=== PATIENT | male | born 1965 | race Caucasian/White ===

== ENCOUNTER 2020-04-05 10:10 | Emergency (ER) | payer OTHER ==
[~2020-04-05] VITALS: Ht 182.9 cm; Wt 111.9 kg
[2020-04-05 10:19] VITALS: BP 144/86
[2020-04-05] MEDS ORDERED: ONDANSETRON PF 4 MG/2 ML VIAL. ONE (10:38)
--- NOTE | 2020-04-05 10:42 | PHYS DOC ---
Past History Past Medical History: Other Additional Past Medical Histor: PE Past Surgical History: Hip Replacement Smoking: Non-smoker Alcohol Use: None Drug Use: None Adult General Chief Complaint Chief Complaint: FATIGUE HPI HPI Patient is a 54-year-old male presenting for nausea and vomit. Patient states he has been grossly fatigued, had generalized muscle aches and ongoing nausea with infrequent episodes of nonbilious nonbloody emesis and diarrhea for past 2 weeks. He saw his primary care physician roughly 2 weeks ago and tested rapid Covid screen negative at that time. Supportive care was advised. Symptoms did not resolve so he visited his primary care physician 6 days ago for repeat evaluation and again was checked for rapid COVID-19 test which was also negative at that time, patient was subsequently prescribed Z-Deep and completed this in its entirety yesterday. States he woke up today with ongoing nausea and had x1 episode of nonbloody nonbilious emesis prompting him to come to our ER for evaluation. Patient reports being healthy, fully up-to-date on all vaccinations, and has remote history of pulmonary embolism for which he takes Xarelto daily. No fevers, falls, no syncope or dizziness, no recent travel concerning ingestions or trauma, no chest pain, shortness of breath, productive cough, abdominal pain, urinary symptoms, changes in motor or sensory function. Patient's associated symptoms throughout entirety of illness onset has been vague pain to the superiormost portion of his head without radiation, rhinorrhea and postnasal drip, nausea without abdominal pain, and infrequent episodes of nonbloody nonbilious emesis and looser stools than usual as noted above. Review of Systems Review of Systems Fourteen body systems of review of systems have been reviewed. See HPI for pertinent positives and negative responses, other pimentel all other systems are negative, non-pertinent or non-contributory Allergies Allergies Allergies Coded Allergies Type Severity Reaction Last Updated Verified No Known Drug Allergies 04/05/20 No Physical Exam Physical Exam Constitutional: Well developed, well nourished, no acute distress, non-toxic appearance. Appears uncomfortable HENT: Normocephalic, atraumatic, bilateral external ears normal, oropharynx moist, postnasal drip present, no oral exudates, nose normal. No cervical lymphadenopathy Eyes: PERRLA, EOMI, conjunctiva normal, no discharge. Neck: Normal range of motion, no tenderness, supple, no stridor. Cardiovascular: Heart rate regular, sinus rhythm, no murmurs rubs or gallops Lungs & Thorax: Bilateral breath sounds clear to auscultation, no respiratory distress, no accessory muscle usage Abdomen: Bowel sounds normal, soft, no tenderness, no masses, no pulsatile masses. Nonsurgical abdomen, no peritoneal signs Skin: Warm, dry, no erythema, no rash. Back: No tenderness, no CVA tenderness. Extremities: No tenderness, no cyanosis, no clubbing, ROM intact, no edema. Neurologic: Alert and oriented X 3, grossly normal motor & sensory function, no focal deficits noted. Psychologic: Blunted affect, judgement normal, mood normal. Current Patient Data Vital Signs Vital Signs Date Time Temp Pulse Resp B/P (MAP) Pulse Ox O2 Delivery O2 Flow Rate FiO2 04/05/20 10:19 98.6 78 16 144/86 (105) 98 Room Air Lab Results Laboratory Tests Test 04/05/20 10:36 White Blood Count 3.8 x10^3/uL Red Blood Count 3.97 x10^6/uL Hemoglobin 12.2 g/dL Hematocrit 35.7 % Mean Corpuscular Volume 90 fL Mean Corpuscular Hemoglobin 31 pg Mean Corpuscular Hemoglobin Concent 34 g/dL Red Cell Distribution Width 12.3 % Platelet Count 298 x10^3/uL Neutrophils (%) (Auto) 51 % Lymphocytes (%) (Auto) 38 % Monocytes (%) (Auto) 8 % Eosinophils (%) (Auto) 1 % Basophils (%) (Auto) 2 % Neutrophils # (Auto) 1.9 x10^3uL Lymphocytes # (Auto) 1.4 x10^3/uL Monocytes # (Auto) 0.3 x10^3/uL Eosinophils # (Auto) 0.0 x10^3/uL Basophils # (Auto) 0.1 x10^3/uL Sodium Level 131 mmol/L Potassium Level 4.3 mmol/L Chloride Level 97 mmol/L Carbon Dioxide Level 23 mmol/L Anion Gap 11 Blood Urea Nitrogen 16 mg/dL Creatinine 1.0 mg/dL Estimated GFR (Cockcroft-Gault) 78.5 BUN/Creatinine Ratio 16 Glucose Level 121 mg/dL Calcium Level 8.8 mg/dL Total Bilirubin 0.3 mg/dL Aspartate Amino Transf (AST/SGOT) 30 U/L Alanine Aminotransferase (ALT/SGPT) 68 U/L Alkaline Phosphatase 198 U/L Creatine Kinase 119 U/L Troponin I Quantitative < 0.017 ng/mL Total Protein 7.9 g/dL Albumin 3.1 g/dL Albumin/Globulin Ratio 0.6 Lipase 263 U/L Heterophil Agglutinins Negative Current Medications Medications (Trade) Dose Ordered Sig/Aniceto Route PRN Reason Start Time Stop Time Status Last Admin Dose Admin Sodium Chloride 1,000 ml @ 1,000 mls/hr Q1H IV 04/05/20 10:45 04/05/20 11:44 04/05/20 10:39 Ondansetron HCl (Zofran) 4 mg 1X ONCE IVP 04/05/20 10:45 04/05/20 10:46 DC 04/05/20 10:40 Ondansetron HCl (Zofran) 4 mg STK-MED ONCE .ROUTE 04/05/20 10:38 04/05/20 10:38 DC EKG EKG EKG ordered and interpreted by myself at 1124 hrs. as sinus rhythm at 75 bpm, unremarkable intervals, no axis deviation, no acute ischemic findings, no STEMI Radiology/Procedures Radiology/Procedures [] Heart Score HEART Score for Chest Pain: HEART Score for Chest Pain Response (Comments) Value History Slighlty/Non-Suspicious 0 Age >45 - < 65 1 Risk Factors 1 or 2 Risk Factors 1 Troponin < Normal Limit 0 Total 2 Risk Factors: Risk Factors: DM, Current or recent (<one month) smoker, HTN, HLP, family history of CAD, obesity. Risk Scores: Risk Factors: DM, Current or recent (<one month) smoker, HTN, HLP, family history of CAD, obesity. Course & Med Decision Making Course & Med Decision Making Discussed with the patient all findings and diagnostic testing. I discussed most likely diagnosis of nausea and vomit with unknown etiology. Discussed with patient no obvious emergent and/or surgical findings today. I discussed need for self quarantine as patient was checked for COVID-19 today, he still has several tests pending that are send out labs such as hepatitis and HIV. Patient has good access to PCP on post, I stressed need for close outpatient follow-up to review today's ER visit and follow-up on testing performed today. I suspect that patient is likely suffering from sequelae of COVID-19 infection that came back as false positives. Strict return precautions were also discussed at length with good understanding by patient. Patient voiced understanding and agreement with the plan. Patient knows to come back for repeat evaluation if concerning signs or symptoms present prior to outpatient follow-up. Hemodynamically stable, ambulatory and well-appearing at time of disposition. Dragon Disclaimer Dragon Disclaimer This electronic medical record was generated, in whole or in part, using a voice recognition dictation system. Departure Departure: Impression: Primary Impression: Nausea and vomiting Disposition: DC HOME SELF CARE/HOMELESS Condition: STABLE Referrals: PCP,UNKNOWN (PCP) Patient Instructions: Nausea and Vomiting Additional Instructions: You were seen for nausea and vomiting. You most likely have a viral illness which should resolve in the next few days to a week. You were checked for COVID-19 today, you should quarantine at home until further notice, we will communicate positive or negative results to you. As discussed at length, there were no obvious emergent or surgical pathology found today; however, you do have several tests such as hepatitis panel and HIV testing. I advise you contact your PCP tomorrow to discuss ER visit today and schedule outpatient follow-up whenever safe to do so. You should return to the ED if you develop abdominal p ain, fever > 100.3, black/bloody stools, black/bloody vomiting, cannot keep water down, or any other new or concerning symptoms. It was a pleasure to take care of you and I wish you the best going forward Scripts Ondansetron Hcl (ZOFRAN) 4 Mg Tablet 1 TAB PO PRN Q6-8HRS for nausea, #20 TAB Prov: ELIJAH MCKEON DO 04/05/20 ELIJAH MCKEON DO Apr 05, 2020 10:42
[2020-04-05] MEDS ORDERED: IV NORMAL SALINE 1,000ML 1,000 ML IV SCH (10:45)
[2020-04-05] MEDS ORDERED: ONDANSETRON PF 4 MG/2 ML VIAL. IVP ONE (10:45)
[2020-04-05 10:59] LABS: BASO # 0.1 x10^3/uL (0.0-0.2); BASO % 2 % (0-3); EOS % 1 % (0-3); HEMATOCRIT 35.7 % (39.0-53.0); HEMOGLOBIN 12.2 g/dL (13.0-17.5); LYMPH # 1.4 x10^3/uL (1.0-4.8); LYMPH % 38 % (24-48); MEAN CORPUSCULAR HEMOGLOBIN 31 pg (25-35); MEAN CORPUSCULAR HGB CONC 34 g/dL (31-37); MEAN CORPUSCULAR VOLUME 90 fL (79-100); MONO # 0.3 x10^3/uL (0.0-1.1); MONO % 8 % (0-9); NEUT # 1.9 x10^3uL (1.8-7.7); NEUT % 51 % (31-73); PLATELET COUNT 298 x10^3/uL (140-400); RED BLOOD COUNT 3.97 x10^6/uL (4.30-5.70); RED CELL DISTRIBUTION WIDTH 12.3 % (11.5-14.5); WHITE BLOOD COUNT 3.8 x10^3/uL (4.0-11.0)
[2020-04-05 11:12] LABS: CALCIUM 8.8 mg/dL (8.5-10.1); GFR 78.5; POTASSIUM 4.3 mmol/L (3.5-5.1)
[2020-04-05 11:17] LABS: ALBUMIN 3.1 g/dL (3.4-5.0); ALBUMIN/GLOBULIN RATIO 0.6 (1.0-1.7); MONONUCLEOSIS PATIENT NEGATIVE (NEGATIVE); TOTAL BILIRUBIN 0.3 mg/dL (0.2-1.0); TOTAL PROTEIN 7.9 g/dL (6.4-8.2)
--- NOTE | 2020-04-05 11:34 | EKG ---
[address] [address] Test Date: 2020-04-05 Test Time: 11:21:59 Pat Name: ELOY BARON Department: Room: Gender: M Electrical Project Engineer: : 1965 Requested By: ELIJAH MCKEON Order Number: [id number] Reading MD: Measurements Intervals [place] Rate: 75 P: 0 MT: 150 QRS: 30 QRSD: 80 T: 30 QT: 382 QTc: 429 Interpretive Statements SINUS RHYTHM NORMAL ECG RI6.02 No previous ECG available for comparison
[2020-04-05] MEDS ORDERED: ONDA4TAB7 PO (11:48)
== END 2020-04-05 11:54 | disposition home or self-care (01) ==
LOC: ER 10:10
DX: R11.2 Nausea with vomiting, unspecified (principal); R19.7 Diarrhea, unspecified; Z20.822 Contact with and (suspected) exposure to COVID-19
CPT/HCPCS: 36415; 80053; 82550; 83690; 84484; 85025; 86308; 86703; 86705; 86709; 86803; 87340; 93005; 96361; 96374; 99284; C9803; J2405; J7030; U0003

== ENCOUNTER 2020-04-07 09:11 | Emergency (ER) | payer OTHER ==
[~2020-04-07] VITALS: Ht 182.9 cm; Wt 111.9 kg
[~2020-04-07 09:11] MED LIST: ONDA4TAB7 PO
[2020-04-07 10:45] LABS: INFLUENZA A PATIENT NEGATIVE (NEGATIVE); INFLUENZA B PATIENT NEGATIVE (NEGATIVE)
[2020-04-07] MEDS ORDERED: METOCLOPRAMIDE HCL 10 MG/2 ML VIAL. IVP ONE (10:45)
[2020-04-07] MEDS ORDERED: ONDANSETRON PF 4 MG/2 ML VIAL. IVP ONE (10:45)
[2020-04-07] MEDS ORDERED: IV NORMAL SALINE 1,000ML 1,000 ML IV ONE ×2 (10:45→11:00)
[2020-04-07] MEDS ORDERED: KETOROLAC 15 MG/ML VIAL. IVP ONE (10:45)
[2020-04-07 10:57] LABS: CREATININE 0.9 mg/dL (0.7-1.3); GFR 88.6; POTASSIUM 3.8 mmol/L (3.5-5.1)
[2020-04-07 10:58] LABS: BASO % 1 % (0-3); EOS # 0.1 x10^3/uL (0.0-0.7); EOS % 2 % (0-3); HEMATOCRIT 38.1 % (39.0-53.0); HEMOGLOBIN 12.9 g/dL (13.0-17.5); LYMPH # 1.4 x10^3/uL (1.0-4.8); LYMPH % 44 % (24-48); MEAN CORPUSCULAR HEMOGLOBIN 30 pg (25-35); MEAN CORPUSCULAR HGB CONC 34 g/dL (31-37); MEAN CORPUSCULAR VOLUME 90 fL (79-100); MONO # 0.2 x10^3/uL (0.0-1.1); MONO % 7 % (0-9); NEUT # 1.5 x10^3uL (1.8-7.7); NEUT % 46 % (31-73); PLATELET COUNT 322 x10^3/uL (140-400); RED BLOOD COUNT 4.25 x10^6/uL (4.30-5.70); RED CELL DISTRIBUTION WIDTH 12.8 % (11.5-14.5); WHITE BLOOD COUNT 3.2 x10^3/uL (4.0-11.0)
[2020-04-07 11:03] LABS: ALBUMIN 3.2 g/dL (3.4-5.0); ALBUMIN/GLOBULIN RATIO 0.7 (1.0-1.7); MAGNESIUM 2.3 mg/dL (1.8-2.4); TOTAL BILIRUBIN 0.4 mg/dL (0.2-1.0)
[2020-04-07 11:09] LABS: MONONUCLEOSIS PATIENT NEGATIVE (NEGATIVE)
--- NOTE | 2020-04-07 11:18 | RAD ---
Single AP view of the chest. Comparison: None. Indication: Fatigue, possible Covid exposure Findings: The heart is not enlarged. There is no pneumothorax or effusion. No air space or interstitial diseas e. Impression: 1. No acute cardiopulmonary process. Electronically signed by: Franki Roper MD (04/07/2020 11:15 AM) [id number]
[2020-04-07 11:30] LABS: % ATYL 8 % (0-0); % BANDS 6 % (0-9); % EOS 2 % (0-5); % LYMPHS 33 % (24-48); % MONOS 7 % (0-10); % SEGS 44 % (35-66)
[2020-04-07 11:31] LABS: MICROCYTOSIS SLIGHT; PLATELET CLUMP PRESENT; PLT ESTIMATE INCREASED (ADEQUATE)
[2020-04-07] MEDS ORDERED: METO5TAB55 PO (14:03)
--- NOTE | 2020-04-07 14:05 | PHYS DOC ---
Past History Past Medical History: Other Additional Past Medical Histor: PE Past Surgical History: Hip Replacement Smoking: Non-smoker Alcohol Use: None Drug Use: None General Adult EDM: Chief Complaint: FATIGUE HPI: HPI: 54-year-old male past medical history pulmonary embolus on Xarelto, presents the ED with complaints of 3 weeks of generalized malaise, nausea and nonbloody nonbilious vomiting, tested negative for Covid twice and states " I just feel too weak to get up and do anything or even cook for myself." Patient was seen in the ED 2 days ago for nausea and vomiting and was prescribed Zofran ODT. Patient states he only took 1 tablet of Zofran since then. Is not taking Tylenol and ibuprofen routinely. Cannot recall why he developeded a PE. Has no associated chest pain, dyspnea, hemoptysis, difficulties breathing back pain or neurologic deficits. Review of Systems: Review of Systems: Constitutional: Denies fever or chills Eyes: Denies change in visual acuity HENT: Denies nasal congestion or sore throat Respiratory: Denies cough or shortness of breath or hemoptysis Cardiovascular: Denies chest pain or edema GI: Denies abdominal pain, nausea, vomiting, bloody stools or diarrhea : Denies dysuria or hematuria Musculoskeletal: Denies back pain or joint pain Integument: Denies rash or diaphoresis Neurologic: Denies headache, focal weakness or sensory changes Endocrine: Denies polyuria or polydipsia Lymphatic: Denies swollen glands Psychiatric: Denies depression or anxiety Current Medications: Current Meds: Current Medications Medications (Trade) Dose Ordered Sig/Aniceto Start Time Stop Time Status Last Admin Dose Admin Ketorolac Tromethamine (Toradol 15mg Vial) 15 mg 1X ONCE 04/07/20 10:45 04/07/20 10:46 DC 04/07/20 11:16 15 MG Metoclopramide HCl (Reglan Vial) 10 mg 1X ONCE 04/07/20 10:45 04/07/20 10:46 DC 04/07/20 11:14 10 MG Ondansetron HCl (Zofran) 4 mg 1X ONCE 04/07/20 10:45 04/07/20 10:46 DC 04/07/20 11:11 4 MG Sodium Chloride 1,000 ml @ 1,000 mls/hr 1X ONCE 04/07/20 11:00 04/07/20 11:59 DC 04/07/20 11:10 1,000 MLS/HR Allergies: Allergies: Allergies Coded Allergies Type Severity Reaction Last Updated Verified No Known Drug Allergies 04/05/20 No Physical Exam: PE: Constitutional: Well developed, well nourished, no acute distress, non-toxic appearance. HENT: Normocephalic, atraumatic, Eyes: EOMI, conjunctiva normal, no discharge. Neck: Normal range of motion, supple, Cardiovascular: S1/2 present, regular rhythm Lungs & Thorax: Speaking in full sentences, bilateral equal chest rise, no tachypnea or increased work of breathing Abdomen: soft, no tenderness, Skin: Warm, dry, no erythema, no rash. [] Back: No tenderness, no CVA tenderness. [] Extremities: No tenderness, no cyanosis, no edema Neurologic: Alert and oriented X 3, normal motor function, normal sensory function, no focal deficits noted. [] Psychologic: Affect normal, judgement normal, mood normal. [] Current Patient Data: Labs: Laboratory Tests Test 04/07/20 09:40 04/07/20 10:09 White Blood Count 3.2 x10^3/uL (4.0-11.0) L Red Blood Count 4.25 x10^6/uL (4.30-5.70) L Hemoglobin 12.9 g/dL (13.0-17.5) L Hematocrit 38.1 % (39.0-53.0) L Mean Corpuscular Volume 90 fL (79-100) Mean Corpuscular Hemoglobin 30 pg (25-35) Mean Corpuscular Hemoglobin Concent 34 g/dL (31-37) Red Cell Distribution Width 12.8 % (11.5-14.5) Platelet Count 322 x10^3/uL (140-400) Neutrophils (%) (Auto) 46 % (31-73) Lymphocytes (%) (Auto) 44 % (24-48) Monocytes (%) (Auto) 7 % (0-9) Eosinophils (%) (Auto) 2 % (0-3) Basophils (%) (Auto) 1 % (0-3) Neutrophils # (Auto) 1.5 x10^3uL (1.8-7.7) L Lymphocytes # (Auto) 1.4 x10^3/uL (1.0-4.8) Monocytes # (Auto) 0.2 x10^3/uL (0.0-1.1) Eosinophils # (Auto) 0.1 x10^3/uL (0.0-0.7) Basophils # (Auto) 0.0 x10^3/uL (0.0-0.2) Segmented Neutrophils % 44 % (35-66) Band Neutrophils % 6 % (0-9) Lymphocytes % 33 % (24-48) Atypical Lymphocytes % (Manual) 8 % (0-0) H Monocytes % 7 % (0-10) Eosinophils % 2 % (0-5) Platelet Estimate Increased (ADEQUATE) Platelet Clumps, EDTA Present Microcytosis Slight Sodium Level 132 mmol/L (136-145) L Potassium Level 3.8 mmol/L (3.5-5.1) Chloride Level 99 mmol/L (98-107) Carbon Dioxide Level 25 mmol/L (21-32) Anion Gap 8 (6-14) Blood Urea Nitrogen 15 mg/dL (8-26) Creatinine 0.9 mg/dL (0.7-1.3) Estimated GFR (Cockcroft-Gault) 88.6 BUN/Creatinine Ratio 17 (6-20) Glucose Level 117 mg/dL (70-99) H Calcium Level 9.0 mg/dL (8.5-10.1) Magnesium Level 2.3 mg/dL (1.8-2.4) Total Bilirubin 0.4 mg/dL (0.2-1.0) Aspartate Amino Transferase (AST) 24 U/L (15-37) Alanine Aminotransferase (ALT) 53 U/L (16-63) Alkaline Phosphatase 166 U/L (46-116) H Creatine Kinase 103 U/L (39-308) Troponin I Quantitative < 0.017 ng/mL (0-0.055) Total Protein 8.0 g/dL (6.4-8.2) Albumin 3.2 g/dL (3.4-5.0) L Albumin/Globulin Ratio 0.7 (1.0-1.7) L Lipase 180 U/L (73-393) Thyroid Stimulating Hormone (TSH) 3.309 uIU/mL (0.358-3.740) Heterophil Agglutinins Negative (NEGATIVE) Influenza Type A (Rapid) Negative (NEGATIVE) Influenza Type B (Rapid) Negative (NEGATIVE) Vital Signs: Vital Signs Date Time Temp Pulse Resp B/P (MAP) Pulse Ox O2 Delivery O2 Flow Rate FiO2 04/07/20 09:25 97.7 12 133/87 (102) 95 Room Air EKG: EKG: [] Radiology/Procedures: Radiology/Procedures: []IMAGING REPORT Signed PATIENT: ELOY BARON ACCOUNT: [id number] : 1965 LOCATION: ER AGE: 54 SEX: M EXAM STATUS: REG ER ORD. PHYSICIAN: JESSICA NEWMAN DO REASON: fatigue, pui PROCEDURE: CHEST AP ONLY Single AP view of the chest. Comparison: None. Indication: Fatigue, possible Covid exposure Findings: The heart is not enlarged. There is no pneumothorax or effusion. No air space or interstitial disease. Impression: 1. No acute cardiopulmonary process. Electronically signed by: Franki Roper MD (04/07/2020 11:15 AM) [id number] DICTATED AND SIGNED BY: FRANKI ROPER MD DATE: 04/07/20 1115 CC: NOREEN HARRINGTON DO; JESSICA NEWMAN DO ~MTH0 0 Heart Score: Risk Factors: Risk Factors: DM, Current or recent (<one month) smoker, HTN, HLP, family history of CAD, obesity. Risk Scores: Score 0 - 3: 2.5% MACE over next 6 weeks - Discharge Home Score 4 - 6: 20.3% MACE over next 6 weeks - Admit for Clinical Observation Score 7 - 10: 72.7% MACE over next 6 weeks - Early Invasive Strategies Course & Med Decision Making: Course & Med Decision Making Pertinent Labs and Imaging studies reviewed. (See chart for details) COVID-19 CRITERIA: The patient was evaluated during the global COVID-19 pandemic, and that diagnosis was suspected/considered upon their initial presentation. Their evaluation, treatment and testing was consistent with current guidelines for patients who present with complaints or symptoms that may be related to COVID-19. Labs consistent with leukopenia-consistent with Covid. EMR reviewed and HIV and hepatitis studies were negative. Highly suspect leukopenia is Covid related, maliase is covid-related complication and patient has had false negative PCR testing. Patient is not requiring any supplemental oxygen and has no active nausea or vomiting in ED. influenza and mono testing negative. Was educated on Zofran ODT use and will prescribe another antiemetic. Will discharge home with strict ED return precautions were given for shock symptoms, neurologic deficits, chest pain, dyspnea or increased work of breathing. Encouraged urgent outpatient follow-up with PMD. Life-threatening processes were considered but are low suspicion at this time, given history, physical exam and ED workup. Pt was educated on all prescription medications and adverse effects. All patient's questions were answered and pt was stable at time of discharge. Life/limb-threatening differential includes but is not limited to, acute coronary syndrome/myocardial infarction, Boerhaave's, DKA, intracranial hemorrhage, ischemic bowel, meningitis, sepsis, surgical abdomen, toxidrome (drug over/overdose/carbon monoxide, etc), testicular torsion, trauma, or infection/sepsis. I spoken with the patient and her caregivers. I explained the patient's condition, diagnoses and treatment plan based on the information available to me at this time. I have answered the patient and her caregiver's questions and addressed any concerns. The patient and her caregivers have a good understanding of patient's diagnosis, condition and treatment plan as can be expected at this point. Vital signs have been stable. Patient's condition is stable and appropriate for discharge from the emergency department. Patient will pursue further outpatient evaluation with primary care physician or other designated or consulting physician as outlined in the discharge instructions. The patient and/or caregivers are agreeable to this plan of care and follow-up instructions have been explained in detail. The patient and/or caregivers have received these instructions in written form and have expressed an understanding of the discharge instructions. The patient and/or caregivers are aware that any significant change of condition or worsening of symptoms should prompt immediate return to this or the closest emergency department or call to 911. Vonda Disclaimer: Vonda Disclaimer: This electronic medical record was generated, in whole or in part, using a voice recognition dictation system. Departure Departure: Impression: Primary Impression: Person under investigation for COVID-19 Additional Impressions: Malaise and fatigue Leukopenia Nausea and vomiting Disposition: 01 DC HOME SELF CARE/HOMELESS Condition: STABLE Referrals: NOREEN HARRINGTON DO (PCP) in 3-5 days for HIV testing (= which is on a leukopenia differential although symptoms are more consistent with covid) Patient Instructions: Nausea and Vomiting Additional Instructions: Return to ED immediately if your oxygen level drops below 90% (purchase a pulse oximetry at a medical supply store), difficulties breathing including rapid breathing or increased work of breathing (skin sucking under ribs), chest pain or stroke-like symptoms (facial droop, speech changes, arm/leg weakness). You have been tested for or diagnosed with COVID-19. It is an infection caused by a new type of coronavirus. COVID-19 will cause cold-like or mild flu symptoms in most. It can cause more severe symptoms like problems breathing in some. There is no treatment for COVID-19. The body will clear the infection over time. Self-care will help to ease discomfort. Steps to Take: Self-Care Rest as needed. Healthy habits may help you feel better. Steps include: Choose healthy foods including fruits and vegetables. Drink water throughout the day. Get plenty of sleep each night. If you smoke, try to quit. It may ease breathing. Avoid alcohol. Keep Others Healthy The virus can spread to others. Droplets are released every time you sneeze or cough. The droplets can get into the mouth, nose, or eyes of people near you and lead to infection. To lower the chances of spreading COVID-19 to others: Stay at home until your doctor has said it is safe to leave. If you tested positive this will mean staying isolated until both of the following are true: At least 7 days have passed since the start of illness. You are free of fever for at least 72 hours without the use of medicine. During this time: - Avoid public areas, events, or transportation. Do not return to work or school until your doctor has said it is safe to do so. - Call ahead if you need to go to a medical center. Let them know you may have COVID-19. It will help them guide you where to go. They may also ask you to wear a facemask when you come to the office. - If you call for emergency medical services, let them know you may have COVID- 19. While at home: - Try to avoid close contact with others. Stay about 6 feet away. - If possible, spend most of your time in a separate room from others. - Use a face mask if you will be in close contact with others such as sharing a room or vehicle. - Have someone wipe down common surfaces in the home. Use household hydraulic lift operator every day on areas like doorknobs, counters, or sinks. - Cough or sneeze into a tissue. Throw the tissue away right after use. If a tissue is not available, cough or sneeze into your elbow. - Wash your hands often. Wash them after sneezing or coughing. Use soap and water and wash for at least 20 seconds. Alcohol based hand industrial cleaner can be used if soap and water is not available. - Do not prepare food for others. Avoid sharing personal items like forks, spoons, or toothbrushes. - Avoid close contact with pets while you are sick. There is no evidence of the virus passing to pets. This is a safety step until more is known about this virus. Isolation can be frustrating. Social interaction can help. Keep in touch with friends and family through phone and tech options. You can still interact with others in your home, just keep a safe distance of about 6 feet. Follow-up: Your doctors office will check in with you to see if there are any changes in your health. You may be asked to keep track of symptoms to share with them. They will also let you know when you are clear to be in public again. Problems to Look Out For: Contact your doctor if your recovery is not going as you expect. Get emergency care if you have problems such as: - Trouble breathing - Nonstop chest pain or pressure - Changes in awareness, confusion, or problems waking - Lips or face have bluish color - Worsening of symptoms If you think you have an emergency, call for emergency medical services right away. As taken from [employer] Scripts Metoclopramide Hcl (REGLAN) 5 Mg Tablet 1 TAB PO TID PRN for NAUSEA for 20 Days, #20 TAB 0 Refills 1 hour prior to procedure Prov: JESSICA NEWMAN DO 04/07/20 JESSICA NEWMAN DO Apr 07, 2020 14:04
[2020-04-07 14:15] VITALS: BP 122/76
[2020-04-07 15:12] LABS: BARBITURATES NEG (NEG); BENZODIAZEPINES NEG (NEG); CANNABINOIDS NEG (NEG); COCAINE NEG (NEG); METHADONE NEG (NEG); OPIATES NEG (NEG); PHENCYCLIDINE NEG (NEG)
[2020-04-07 15:13] LABS: AMPHETAMINE/METHAMPHETAMINE NEG (NEG)
[2020-04-07 15:22] LABS: BACTERIA,URINE 0 /HPF (0-FEW); BILIRUBIN,URINE NEG (NEG); CLARITY,URINE CLEAR; COLOR,URINE STRAW; GLUCOSE,URINE NEG (NEG); NITRITE,URINE NEG (NEG); RBC,URINE 0 /HPF (0-2); SQUAMOUS EPITHELIAL CELL,UR OCC /LPF; UROBILINOGEN,URINE 0.2 mg/dL (0.2 mg/dL); WBC,URINE 0 /HPF (0-4)
== END 2020-04-07 14:30 | disposition home or self-care (01) ==
LOC: ER 09:11
DX: D72.819 Decreased white blood cell count, unspecified (principal); R11.2 Nausea with vomiting, unspecified; R53.81 Other malaise; R53.83 Other fatigue; Z20.822 Contact with and (suspected) exposure to COVID-19; Z79.01 Long term (current) use of anticoagulants; Z86.711 Personal history of pulmonary embolism
CPT/HCPCS: 36415; 71045; 80053; 80307; 81001; 82550; 83690; 83735; 84443; 84484; 85007; 85025; 86308; 87804; 96361; 96374; 96375; 99285; J1885; J2405; J2765; J7030